=== PATIENT | male | born 1975 | race African-American/Black ===

== ENCOUNTER 2022-03-09 16:31 | Emergency (ER) | payer SELFPAY ==
[2022-03-09] MEDS ORDERED: ONDANSETRON ODT8 MG PO (19:31)
[2022-03-09] MEDS ORDERED: HYDROCODON-ACE1 EA11 PO (19:31)
== END 2022-03-09 23:37 | disposition home or self-care (01) ==
LOC: ED 16:31
DX: S06.0X9A Concussion with loss of consciousness of unspecified duration, initial encounter (principal); S63.502A Unspecified sprain of left wrist, initial encounter; S13.9XXA Sprain of joints and ligaments of unspecified parts of neck, initial encounter; S43.402A Unspecified sprain of left shoulder joint, initial encounter; S53.401A Unspecified sprain of right elbow, initial encounter; V29.9XXA Motorcycle rider (driver) (passenger) injured in unspecified traffic accident, initial encounter
CPT/HCPCS: 36415; 70450; 71260; 72125; 73030; 73080; 73110; 74177; 80053; 81001; 83605; 85025; 86850; 86900; 86901; 90471; 90715; 99284-25; G0480; J1170; J2405; Q9967